=== PATIENT | male | born 1955 | race African-American/Black ===

== ENCOUNTER → 2020-10-20 | Day surgery (SDC) | payer OTHER ==
[~2020-10-20] VITALS: Ht 180.3 cm; Wt 112.0 kg
[~2020-10-20] MED LIST: AMLODIPINE BESY10 MG PO; ASPIRIN EC81 MG PO; ATORVASTATIN CA20 MG PO; CLONIDINE HCL0.2 MG PO; COMBIGAN EYE DRO5 ML OU; DICLOFENAC SODI75 MG PO; JANUVIA100 MG PO; LISINOPRIL-HCT1 EAC1 PO; LOVAZA1 G1 PO; MEDROL 4MG DOSEP4 MG PO; METFORMIN HCL1000 M1 PO; MOBIC15 MG PO; NEURONTIN100 MG PO; ONE DAILY TABL1 EAC1 PO; PERCOCET 5-3251 EACH PO; POTASSIUM CHLO10 ME1 PO; TRAZODONE 100M100 MG PO; TRULICITY1.5 MG/0.5 IJ
[2020-10-20 10:30] LABS: HCT 43.3 % (42.0-52.0); MCH 28.5 pg (25.0-31.0); MCHC 34.6 g/dL (32.0-36.0); MCV 82.2 fL (78.0-100.0); MPV 9.9 fL (6.0-9.5); RBC 5.27 M/uL (4.70-6.00); RDW 12.3 % (11.5-14.0); WBC 6.4 K/uL (4.0-10.5)
[2020-10-20 11:04] LABS: BILIRUBIN - TOTAL 0.7 mg/dL (0.2-1.0); BUN/CREAT RATIO (CALC) 15.7 RATIO; CREATININE 0.83 mg/dL (0.67-1.17); POTASSIUM 3.6 mmol/L (3.5-5.1)
== END | disposition home or self-care (01) ==
LOC: FAS 09:51
PROVIDERS: Orthopaedic Surgery
DX: M75.121 Complete rotator cuff tear or rupture of right shoulder, not specified as traumatic (principal); M75.51 Bursitis of right shoulder; M19.011 Primary osteoarthritis, right shoulder; M75.01 Adhesive capsulitis of right shoulder; E11.9 Type 2 diabetes mellitus without complications; G47.30 Sleep apnea, unspecified; E78.5 Hyperlipidemia, unspecified; Z99.89 Dependence on other enabling machines and devices; Z79.82 Long term (current) use of aspirin; Z79.891 Long term (current) use of opiate analgesic; Z79.4 Long term (current) use of insulin; Z79.899 Other long term (current) drug therapy
CPT/HCPCS: 36415; 71045; 80053; 93005; C1713; J0171; J0690; J2250; J2405; J2704; J2795; J7120

== ENCOUNTER → 2021-01-05 | Day surgery (SDC) | payer OTHER ==
[~2021-01-05] VITALS: Ht 180.3 cm; Wt 117.9 kg
== END | disposition home or self-care (01) ==
LOC: FAS 05:52
DX: M75.01 Adhesive capsulitis of right shoulder (principal); E11.9 Type 2 diabetes mellitus without complications; E66.9 Obesity, unspecified; I10 Essential (primary) hypertension; G47.30 Sleep apnea, unspecified; Z87.891 Personal history of nicotine dependence
CPT/HCPCS: 82962; J1100; J2250; J2704; J2795; J3010; J7120

== ENCOUNTER 2021-05-23 11:13 | Emergency (ER) | payer OTHER ==
[2021-05-23 13:05] LABS: BASOPHIL 1.2 % (0-2); EOSINOPHIL 3.6 % (0-7); HCT 41.8 % (42.0-52.0); MCH 28.3 pg (25.0-31.0); MCHC 33.5 g/dL (32.0-36.0); MCV 84.6 fL (78.0-100.0); MONOCYTE 6.9 % (0-12); NEUTROPHIL 67.1 % (41-80); NRBC 0; PLT 236 K/uL (150-400); RBC 4.94 M/uL (4.70-6.00); RDW 12.4 % (11.5-14.0); WBC 5.8 K/uL (4.0-10.5)
[2021-05-23 13:10] LABS: BILIRUBIN 1+ mg/dL (NEGATIVE); BLOOD NEGATIVE Ery/uL (NEGATIVE); CLARITY CLEAR (CLEAR); COLOR YELLOW (YELLOW); GLUCOSE (U) 3+ mg/dL (NORMAL); LEUKOCYTES NEGATIVE Leu/uL (NEGATIVE); NITRITE NEGATIVE (NEGATIVE); PROTEIN 1+ mg/dL (NEGATIVE); SPECIFIC GRAVITY >=1.030 (1.001-1.030); UROBILINOGEN 0.2 mg/dL (0.2-1.0); pH 5.5 (5.0-9.0)
[2021-05-23 13:16] LABS: BACTERIA TRACE; MUCOUS LARGE
[2021-05-23 13:22] LABS: BUN/CREAT RATIO (CALC) 13.7 RATIO; CREATININE 1.53 mg/dL (0.67-1.17); POTASSIUM 3.7 mmol/L (3.5-5.1)
== END 2021-05-23 15:12 | disposition home or self-care (01) ==
LOC: FER 11:13
PROVIDERS: Nurse Practitioner Family
DX: I95.9 Hypotension, unspecified (principal); I10 Essential (primary) hypertension; E11.9 Type 2 diabetes mellitus without complications; Z79.84 Long term (current) use of oral hypoglycemic drugs
CPT/HCPCS: 36415; 80048; 81001; 85025; 99284; J7120